=== PATIENT | female | born 1950 | race Caucasian/White ===

== ENCOUNTER 2025-04-19 11:15 | Inpatient (IN) ==
[2025-04-19 11:57] LABS: Hematocrit (blood only) 38.4 % (37.0-47.0); Hemoglobin 13.1 g/dl (12.0-16.0); Immature Granulocytes # (auto) 0.01 K/uL (0.01-0.20); Immature Granulocytes % (auto) 0.3 %; Mean Corpuscular Hemoglobin 32.4 pg (25.0-34.0); Mean Corpuscular Volume 95.0 fL (80.0-100.0); Platelet Count 135 K/uL (130-400); RDW Standard Deviation 45.1 fL (36.4-46.3); Red Blood Count 4.04 M/uL (4.20-5.40); White Blood Count 3.96 K/ul (4.8-10.8)
[2025-04-19 12:12] LABS: Alanine Aminotransferase 22 U/L (7-52); Albumin Globulin Ratio 1.3 (0.9-2); Alkaline Phosphatase 41 U/L (34-104); Anion Gap 5 (3-11); Bilirubin,Total 0.4 mg/dl (0.2-1.0); Blood Urea Nitrogen 10 mg/dl (6-23); Calcium 8.8 mg/dl (8.6-10.3); Carbon Dioxide 30 mmol/L (21-32); Chloride 101 mmol/L (98-107); Globulin 3.0 gm/dl (2.5-4.0); Glucose 165 mg/dl (70-99(Fasting)); Potassium 3.8 mmol/L (3.5-5.1); Sodium 136 mmol/L (136-145); Total Protein 6.8 gm/dl (6.0-8.3)
--- NOTE | 2025-04-19 12:20 | XRay Report ---
SINGLE VIEW CHEST CLINICAL HISTORY: Cough and dyspnea. Covered FINDINGS: An AP, portable, upright chest radiographs are obtained. No prior studies are available for comparison at the time of dictation. The cardiomediastinal silhouette is unremarkable noting atheros clerotic calcification of the thoracic aorta. The lungs and pleural spaces are clear. No pneumothorax is seen. The skeletal structures are osteopenic. The bony thorax is grossly intact. IMPRESSION: No active disease in the chest. ACT 112: Negative or not required by law. Electronically signed by: Des Minaya M.D. 04/19/2025 12:19 PM
[2025-04-19] MEDS: OPTIRAY 320 125ml IV ONE (13:11)
--- NOTE | 2025-04-19 13:29 | CT Scan Report ---
CT ANGIOGRAM OF THE CHEST CLINICAL HISTORY: Dyspnea. Covid. COMPARISON STUDY: No priors TECHNIQUE: Following the IV administration of 63 cc of Optiray 320, CT angiogram of the chest was per formed from the upper abdomen to the thoracic inlet utilizing the pulmonary embolus protocol. Images are reviewed in the axial, sagittal, and coronal planes. 3-D MIPS images are created and assessed. IV contrast was administered without complication. A dose lowering technique was utilized adhering to the principles of ALARA. CT DOSE: 300.2 mGy.cm FINDINGS: Thyroid: Normal in size and heterogeneous in attenuation. Thoracic aorta: There is mild atherosclerotic calcification of the thoracic aorta, which is normal in caliber and demonstrates standard 3-vessel arch anatomy. The thoracic aorta is not well opacified. Pulmonary vasculature: The pulmonary trunk is normal in caliber. There are no filling defects identif ied in main, lobar, or segmental pulmonary branches to suggest pulmonary embolus. Heart: The heart is enlarged and without pericardial effusion. Lungs and pleural spaces: Evaluation of the lung parenchyma is modestly degraded by motion artifact. No airspace consolidation is seen typical for pneumonia. There are trace pleural effusions with depen dent atelectasis. The trachea and central airways are clear. There are scattered calcified granulomas . Mediastinum: There is no mediastinal lymphadenopathy. Vivienne: Clear. Axillae: There is no axillary lymphadenopathy. Upper abdomen: Partially visualized upper abdominal viscera is within normal limits. Skeletal structures: The skeletal structures are osteopenic. No lytic or blastic bony lesions are see n. IMPRESSION: 1. There is no evidence of pulmonary embolus in the main, lobar, or segmental pulmonary arteries. 2. Cardiomegaly and trace pleural effusions. 3. There is no airspace consolidation typical for pneumonia. 4. Additional findings as above ACT 112: Negative or not required by law. Electronically signed by: Des Minaya M.D. 04/19/2025 1:27 PM
--- NOTE | 2025-04-19 13:46 | Emergency Department Note ---
Impression & Plan COVID-19, Fatigue, Dizziness ED Provider Note NAME: KOTA PRATT AGE: 74 SEX: Female INFORMANT: Patient and ED PROVIDER(S): Govind Verde MD CHIEF COMPLAINT: Illness PLAN: Disposition: Admitted Outpatient prescription management: none Referral: None MEDICAL DECISION MAKING: Patient presented because of illness. She was COVID-positive at home. Her history was concerning as she noted feeling lightheaded and dizzy and had hypotension prior to her vomiting. Workup was initiated. CBC and chemistry panels revealed mild leukopenia but no other gross abnormalities. Her ECG showed bradycardia. Cardiac monitoring was done and no dysrhythmia noted. Patient was persistently in the 50s. Patient notes she typically runs in the 60s. Her chest x-ray was unremarkable. Due to the illness the patient underwent CT imaging. No evidence of COVID-pneumonia or pulmonary embolism noted. She did have a slight elevation of BNP. Discussed treatment options with the patient and her . Do have some concerns for possible cardiac etiology of the near syncope and hypotension in light of the lack of other findings. Patient's blood pressure was creeping up as she notes she did not take her morning medications. Patient was given her amlodipine and lisinopril. Patient's carvedilol was held due to her bradycardia. Discussed case with Dr. Soliman of the [facility] hospitalist service. Diagnostics were reviewed. Patient was evaluated in the ER for further management. Care/management discussed with: storage manager, hospitalist Level of care consideration(s): After review of the information above and other included data, I feel the patient requires escalation of care to admission Triage Nursing notes: reviewed and agree them. Vital Signs: reviewed and remarkable for bradycardia, hypertension Additional History obtained from: Chronic Medical/Social Conditions affecting care: FMD Prior/ Outside/ External records reviewed: none Differential Diagnosis: Infection, dehydration, metabolic abnormality, hypo/hyperglycemia, electrolyte disturbance, anemia, hypoxia, cardiac sources, intracerebral event, toxicologic, neurologic, as well as other pathologies. Diagnostics, independently interpreted by me: ECG: Twelve-lead ECG reveals sinus bradycardia 56 beats per minute. No evidence of pericarditis, ischemia, ectopy, or dysrhythmia. Cardiac Monitoring: none Medical decision rules: Cardiac monitoring ordered by me: The patient was placed on continuous cardiac monitoring and observed. It revealed a sinus bradycardia at 54 beats per minute without ectopy or evidence of dysrhythmia. Imaging studies: Chest x-ray. Findings: A chest x-ray was performed and revealed no pneumothorax, effusion, infiltrate, pulmonary edema, free air under the diaphragm, or wide mediastinum. Impression: No acute disease. HPI: 74 year old Female arrives for evaluation of illness. This started 5 days ago and is worsening. Patient was diagnosed with COVID-19. Patient states that he has been improving. She took a home test and it was positive. PCP did prescribe Paxlovid but patient did not fill this. The patient also notes the following associated symptoms, body aches, fever, lightheadedness, dizziness, fatigue, SOB, vomiting, generalized weakness, brain fog and nasal congestion. The patient has found no relieving factors. Current pain is rated as 5/10. Patient states that she has been laid up and very fatigued with this. She felt lightheaded and dizzy today and took her blood pressure. She found that it was in the 90s systolic. Pt denies LOC, visual changes, neck pain, chest pain, abdominal pain, back pain, melena, hematochezia, urinary symptoms, numbness, lymphadenopathy, rash, or other complaints.. PAST MEDICAL HISTORY: See Below, COVID-19 PAST SURGICAL HISTORY: See Below, SOCIAL HISTORY: See Below, HOME MEDICATIONS: See Below ALLERGIES: See Below VITALS: See Below PHYSICAL EXAMINATION: GENERAL: Awake, tired-appearing, in no distress HENT: Normocephalic, atraumatic. Oropharynx unremarkable. EYES: Normal conjunctiva. Sclera non-icteric. NECK: Inspection normal. Non-tender. Supple. No nuchal rigidity. FROM. No masses. RESPIRATORY: Clear to auscultation. No wheezes. No rales. Normal respiratory effort. CARDIAC: Normal rate. Normal rhythm. No murmurs. No rubs. Extremities warm and well perfused. Pulses equal. No JVD. GI: Soft, non-distended. No tenderness to palpation. No rebound or guarding. No masses. RECTAL: Deferred. MUSCULOSKELETAL: Atraumatic. Chest examination reveals no tenderness. The back is symmetrical on inspection without obvious abnormality. There is no CVA tenderness to palpation. No joint edema. LOWER EXTREMITIES: Calves are equal size bilaterally and non-tender. No edema. No discoloration. NEURO: Normal sensorium. No sensory or motor deficits noted. SKIN: No rash or jaundice noted. PROCEDURES: none CRITICAL CARE: none OBSERVATION NOTE: none Past Med/Surg History Problem List Dizziness (Acute) Fatigue (Acute) COVID-19 (Acute) Medical History Fibromuscular dysplasia Social History Smoking Status: Never smoker Second Hand Exposure: No; Do You Dip or Chew Tobacco: No; Tobacco Cessation Education Requested by Patient: No Hx Alcohol Use: Yes Hx Substance Use: No Preferred Language: Bangladeshi Communication Ability: Effective Mold Dresser Required: No Beliefs That Will Affect Care: None Current Living Situation: Spouse Other Information That Helps Us Care for You: No Feels Safe at Home: Yes Safety Concerns: Feels Safe At This Time Assistive Devices: Glasses Assistive Devices Comment: glasses bedside Allergies Allergies Allergy/AdvReac Type Severity Reaction Status Date / Time Unable to Assess Allergy Unverified 04/19/25 14:34 Home Meds Home Medications Medication Instructions Recorded Confirmed amlodipine 2.5 mg tablet 2.5 mg PO QAM 04/19/25 04/19/25 carvedilol 3.125 mg tablet 3.125 mg PO BIDWMEAL 04/19/25 04/19/25 lisinopril 20 mg tablet 20 mg PO QAM 04/19/25 04/19/25 rosuvastatin 10 mg tablet 10 mg PO QAM 04/19/25 04/19/25 sertraline 50 mg tablet 150 mg PO QAM 04/19/25 04/19/25 zolpidem 5 mg tablet 5 mg PO HS PRN Sleep 04/19/25 04/19/25 Results & Data (ED) Vital Signs Vital Signs - 24 hr 04/19/25 11:18 04/19/25 12:01 04/19/25 12:07 Temperature 36.9 C Temperature Source Oral Pulse Rate 58 L 54 L Pulse Rate [Right Finger] 54 L Pulse Rate from SpO2 Sensor Pulse Rhythm [Right Finger] Regular Pulse Strength [Right Finger] Normal Respiratory Rate 20 16 Respiratory Effort / Characteristics Non-Labored Non-Labored Respiratory Depth Normal Normal Respiratory Pattern Regular Blood Pressure 141/82 H Blood Pressure [Right Arm] 150/74 H Blood Pressure Mean 101 Blood Pressure Mean [Right Arm] 99 Blood Pressure Position [Right Arm] Lying Pulse Oximetry 97 97 Oxygen Delivery Method Room Air Room Air Sepsis Recent Fever Within 48 Hours Yes Sepsis New/Unexplained Change in Mental Status Yes Sepsis Action Taken by Nursing No Action Required 04/19/25 14:15 04/19/25 15:00 04/19/25 15:24 Temperature Temperature Source Pulse Rate 57 L Pulse Rate [Right Finger] 59 L Pulse Rate from SpO2 Sensor 57 L Pulse Rhythm [Right Finger] Regular Pulse Strength [Right Finger] Normal Respiratory Rate 16 15 Respiratory Effort / Characteristics Non-Labored Respiratory Depth Normal Respiratory Pattern Regular Blood Pressure 178/89 H Blood Pressure [Right Arm] 182/89 H Blood Pressure Mean 118 Blood Pressure Mean [Right Arm] 120 Blood Pressure Position [Right Arm] Lying Pulse Oximetry 99 100 97 Oxygen Delivery Method Room Air Room Air Room Air Sepsis Recent Fever Within 48 Hours Sepsis New/Unexplained Change in Mental Status Sepsis Action Taken by Nursing 04/19/25 16:02 04/19/25 16:03 Temperature Temperature Source Pulse Rate 58 L 58 L Pulse Rate [Right Finger] Pulse Rate from SpO2 Sensor 57 L Pulse Rhythm [Right Finger] Pulse Strength [Right Finger] Respiratory Rate 21 Respiratory Effort / Characteristics Respiratory Depth Respiratory Pattern Blood Pressure 188/91 H Blood Pressure [Right Arm] Blood Pressure Mean 123 Blood Pressure Mean [Right Arm] Blood Pressure Position [Right Arm] Pulse Oximetry 98 Oxygen Delivery Method Room Air Sepsis Recent Fever Within 48 Hours Sepsis New/Unexplained Change in Mental Status Sepsis Action Taken by Nursing Laboratory Data 04/19/25 11:37 04/19/25 11:37 Lab Results 04/19/25 04/19/25 Range/Units 11:37 16:25 WBC 3.96 L (4.8-10.8) K/ul RBC 4.04 L (4.20-5.40) M/uL Hgb 13.1 (12.0-16.0) g/dl Hct 38.4 (37.0-47.0) % MCV 95.0 (80.0-100.0) fL MCH 32.4 (25.0-34.0) pg MCHC 34.1 (32.0-36.0) g/dL RDW Std Deviation 45.1 (36.4-46.3) fL RDW Coeff of [place] 12.8 (11.5-14.5) % Plt Count 135 (130-400) K/uL MPV 10.6 (9.4-12.4) fL Immature Gran % (Auto) 0.3 % Neut % (Auto) 57.8 % Lymph % (Auto) 31.3 % [place] % (Auto) 9.8 % Eos % (Auto) 0.5 % Baso % (Auto) 0.3 % Neut # (Auto) 2.29 (1.40-6.50) K/uL Lymph # (Auto) 1.24 (1.20-3.40) K/uL [place] # (Auto) 0.39 (0.11-0.59) K/uL Eos # (Auto) 0.02 (0.00-0.50) K/uL Baso # (Auto) 0.01 (0.00-0.20) K/uL Immature Gran # (Auto) 0.01 (0.01-0.20) K/uL Sodium 136 (136-145) mmol/L Potassium 3.8 (3.5-5.1) mmol/L Chloride 101 (98-107) mmol/L Carbon Dioxide 30 (21-32) mmol/L Anion Gap 5 (3-11) BUN 10 (6-23) mg/dl Creatinine 0.66 (0.6-1.2) mg/dl Est Cr Clr Drug Dosing Not Reportable eGFR 92.57 BUN/Creatinine Ratio 15.2 (10-20) Glucose 165 H (70-99(Fasting)) mg/dl Calcium 8.8 (8.6-10.3) mg/dl Total Bilirubin 0.4 (0.2-1.0) mg/dl AST 27 (13-39) U/L ALT 22 (7-52) U/L Alkaline Phosphatase 41 (34-104) U/L Troponin I High Sens 10.5 (0-14) pg/ml B-Natriuretic Peptide 171 H (0-100) pg/ml Total Protein 6.8 (6.0-8.3) gm/dl Albumin 3.8 (3.4-5.0) gm/dl Globulin 3.0 (2.5-4.0) gm/dl Albumin/Globulin Ratio 1.3 (0.9-2) Urine Color Yellow Urine Appearance Clear (Clear) Urine pH 8.5 H (4.5-7.5) Ur Specific [place] 1.021 (1.000-1.030) Urine Protein Negative (Negative) Urine Glucose (UA) Negative (Negative) Urine Ketones Negative (Negative) Urine Blood Trace H (Negative) Urine Nitrite Negative (Negative) Urine Bilirubin Negative (Negative) Urine Urobilinogen Negative (Negative) Ur Leukocyte Esterase Trace H (Negative) Urine WBC (Auto) 0-5 (0-5) /hpf Urine RBC (Auto) 0-2 (0-2) /hpf U Hyaline Cast (Auto) 0-2 (0-2) /lpf U Epithel Cells (Auto) 0-2 (0-2) /hpf Urine Bacteria (Auto) None Seen (None Seen) Urine Comment Administered Medications Hydralazine HCl (Hydralazine Hcl 20 Mg/Ml Vial) 10 mg IV Q6 PRN PRN Reason: Hypertension Stop: 05/19/25 18:09 Last Admin: 04/19/25 18:37 Dose: 10 mg Documented By: Discontinued Medications Amlodipine Besylate (Amlodipine Besylate 5 Mg Tab) 2.5 mg PO NOW ONE Stop: 04/19/25 15:55 Last Admin: 04/19/25 16:03 Dose: 2.5 mg Documented By: carlos eduardo Ioversol (Optiray 320 125ml) 63 ml IV ONCE ONE Stop: 04/19/25 13:11 Last Admin: 04/19/25 13:11 Dose: 63 ml Documented By: NARCISO Lisinopril (Lisinopril 20 Mg Tab) 20 mg PO NOW STA Stop: 04/19/25 15:55 Last Admin: 04/19/25 16:27 Dose: 20 mg Documented By: carlos eduardo Imaging Data Radiologist's Impression: Chest X-Ray 04/19/25 11:24 SINGLE VIEW CHEST CLINICAL HISTORY: Cough and dyspnea. Covered FINDINGS: An AP, portable, upright chest radiographs are obtained. No prior studies are available for comparison at the time of dictation. The cardiomediastinal silhouette is unremarkable noting atherosclerotic calcification of the thoracic aorta. The lungs and pleural spaces are clear. No pneumothorax is seen. The skeletal structures are osteopenic. The bony thorax is grossly intact. IMPRESSION: No active disease in the chest. ACT 112: Negative or not required by law. Electronically signed by: Des Minaya M.D. 04/19/2025 12:19 PM Chest CTA 04/19/25 12:45 CT ANGIOGRAM OF THE CHEST CLINICAL HISTORY: Dyspnea. Covid. COMPARISON STUDY: No priors TECHNIQUE: Following the IV administration of 63 cc of Optiray 320, CT angiogram of the chest was performed from the upper abdomen to the thoracic inlet utilizing the pulmonary embolus protocol. Images are reviewed in the axial, sagittal, and coronal planes. 3-D MIPS images are created and assessed. IV contrast was administered without complication. A dose lowering technique was utilized adhering to the principles of ALARA. CT DOSE: 300.2 mGy.cm FINDINGS: Thyroid: Normal in size and heterogeneous in attenuation. Thoracic aorta: There is mild atherosclerotic calcification of the thoracic aorta, which is normal in caliber and demonstrates standard 3-vessel arch anatomy. The thoracic aorta is not well opacified. Pulmonary vasculature: The pulmonary trunk is normal in caliber. There are no filling defects identified in main, lobar, or segmental pulmonary branches to suggest pulmonary embolus. Heart: The heart is enlarged and without pericardial effusion. Lungs and pleural spaces: Evaluation of the lung parenchyma is modestly degraded by motion artifact. No airspace consolidation is seen typical for pneumonia. There are trace pleural effusions with dependent atelectasis. The trachea and central airways are clear. There are scattered calcified granulomas. Mediastinum: There is no mediastinal lymphadenopathy. Vivienne: Clear. Axillae: There is no axillary lymphadenopathy. Upper abdomen: Partially visualized upper abdominal viscera is within normal limits. Skeletal structures: The skeletal structures are osteopenic. No lytic or blastic bony lesions are seen. IMPRESSION: 1. There is no evidence of pulmonary embolus in the main, lobar, or segmental pulmonary arteries. 2. Cardiomegaly and trace pleural effusions. 3. There is no airspace consolidation typical for pneumonia. 4. Additional findings as above ACT 112: Negative or not required by law. Electronically signed by: Des Minaya M.D. 04/19/2025 1:27 PM Discharge Plan Visit Data Chief Complaint: Illness ED Provider: Govind Verde Discharge Problem: COVID-19, Fatigue, Dizziness Patient Disposition: Admitted As Inpatient Condition: Good Discharge Instructions Interventions: ED Discharge Assessment Last Done: 04/19/25 17:49
[2025-04-19 16:44] LABS: Appearance Urine Clear (Clear); Bacteria Urine Automated None Seen (None Seen); Cast Urine Automated 0-2 /lpf (0-2); Epithelial Cell Urine Auto 0-2 /hpf (0-2); Glucose Urine UA Negative (Negative); RBC Urine Automated 0-2 /hpf (0-2); WBC Urine Automated 0-5 /hpf (0-5)
--- NOTE | 2025-04-19 17:24 | History & Physical Report ---
Date of Service April 19, 2025 Assessment & Plan (1) Dizziness: Plan 74F with PMH fibromuscular dysplasia, HTN who presents with near syncopal episode in setting of COVID infection #Near syncope -Etiology not clear -Possibly due to labile BP+ mild bradycardia in setting of COVID infection -EKG sinus vijay -CTA without PE or PNA -Trop normal -BNP mildly elevated which is new -There is no s/s volume overload or CHF Plan -Stop home coreg given bradycardia -Check TTE given elevated BNp without clear explanation -Continue telemetry #HTN urgency -BP labile, which has been an issue for her in the past -Coreg not ideal given her bradycardia -No s/s end organ damage. doubt BNP elevation was from her labile BP Plan -DC coreg -Increase norvasc from 2.5 to 5mg -Continue lisinopril 20 -Add hydralazine IV prn Greater than 70 minutes were spent discussing with ED, reviewing chart, labs, imaging, talking with patient, placing orders and writing documentation History of Present Illness Chief Complaint: near syncopal episode Primary Care Provider: Briseyda Sharpe MD Ms. Ojeda is a pleasant 74F with PMH fibromusclar dysplasia, HTN who presents with near syncopal episode today. Five days ago, she developed cough, fevers, myalgias. She took a home covid test and was positive. She was ordered paxlovid but has yet to take. She also endorses sinus congestion, fatigue, brain fog. Today, she felt lightheaded and almost lost consciousness. She checked her BP at home and systolic was in the 90s. In the ED, her BP was actually elevated at 188/91. Patient states these BP fluctuations have happened in the past and was attributed to her renal fibromuscular dysplasia. No further episodes of lighthe adedness. She denies CRAMER vision changes LOC CP palp SOB abd pain nvd ED vitals: 188/91 HR mid 50s O2 98 Labs benign other than mildly elevated BNP at 171. No history of CHF CTA chest no acute findings EKG sinus vijay Allergies Allergy/AdvReac Type Severity Reaction Status Date / Time Unable to Assess Allergy Unverified 04/19/25 14:34 Home Medications Medication Instructions Recorded Confirmed Type amlodipine 2.5 mg tablet 2.5 mg PO QAM 04/19/25 04/19/25 History carvedilol 3.125 mg tablet 3.125 mg PO BIDWMEAL 04/19/25 04/19/25 History lisinopril 20 mg tablet 20 mg PO QAM 04/19/25 04/19/25 History rosuvastatin 10 mg tablet 10 mg PO QAM 04/19/25 04/19/25 History sertraline 50 mg tablet 150 mg PO QAM 04/19/25 04/19/25 History zolpidem 5 mg tablet 5 mg PO HS PRN Sleep 04/19/25 04/19/25 History Past Med/Surg History Problem List Dizziness (Acute) Fatigue (Acute) COVID-19 (Acute) Medical History Fibromuscular dysplasia Social History Smoking Status: Never smoker Preferred Language: French Feels Safe at Home: Yes Review of Systems Review of Systems: 14 point ROS neg unless stated in HPI Physical Exam Physical Exam: Vitals and labs reviewed General: Well appearing, NAD HEENT: EOMI, PERRLA Neck: Supple Cardiac: RRR no rubs gallops or murmurs Lungs: CTA no rhonchi wheezing or rales Abd: S NT ND BS positive : Deffered MSK: Full ROM. No obvious deformities Ext: No Edema cyanosis Skin: Warm, Dry Neuro: AOx3 No focal deficits. Psych: Normal Mood Results & Data Results & Data Vital Signs (Past 12 Hours) Vital Signs Temp Pulse Pulse Resp BP BP Pulse Ox 04/19/25 16:03 58 L 21 188/91 H 98 04/19/25 16:02 58 L 04/19/25 15:24 97 04/19/25 15:00 57 L 15 178/89 H 100 04/19/25 14:15 59 L 16 182/89 H 99 04/19/25 12:07 54 L 04/19/25 12:01 54 L 16 150/74 H 97 04/19/25 11:18 36.9 C 58 L 20 141/82 H 97 O2 Del Method 04/19/25 16:03 Room Air 04/19/25 16:02 08/23/25 15:24 Room Air 04/19/25 15:00 Room Air 04/19/25 14:15 Room Air 04/19/25 12:07 04/19/25 12:01 Room Air 04/19/25 11:18 Room Air Laboratory Results Abnormal lab results 04/19/25 04/19/25 Range/Units 11:37 16:25 WBC 3.96 L (4.8-10.8) K/ul RBC 4.04 L (4.20-5.40) M/uL Glucose 165 H (70-99(Fasting)) mg/dl B-Natriuretic Peptide 171 H (0-100) pg/ml Urine pH 8.5 H (4.5-7.5) Urine Blood Trace H (Negative) Ur Leukocyte Esterase Trace H (Negative) Diagnostic Findings Chest X-Ray 04/19/25 11:24 SINGLE VIEW CHEST CLINICAL HISTORY: Cough and dyspnea. Covered FINDINGS: An AP, portable, upright chest radiographs are obtained. No prior studies are available for comparison at the time of dictation. The cardiomediastinal silhouette is unremarkable noting atherosclerotic calcification of the thoracic aorta. The lungs and pleural spaces are clear. No pneumothorax is seen. The skeletal structures are osteopenic. The bony thorax is grossly intact. IMPRESSION: No active disease in the chest. ACT 112: Negative or not required by law. Electronically signed by: Des Minaya M.D. 04/19/2025 12:19 PM Chest CTA 04/19/25 12:45 CT ANGIOGRAM OF THE CHEST CLINICAL HISTORY: Dyspnea. Covid. COMPARISON STUDY: No priors TECHNIQUE: Following the IV administration of 63 cc of Optiray 320, CT angiogram of the chest was performed from the upper abdomen to the thoracic inlet utilizing the pulmonary embolus protocol. Images are reviewed in the axial, sagittal, and coronal planes. 3-D MIPS images are created and assessed. IV contrast was administered without complication. A dose lowering technique was utilized adhering to the principles of ALARA. CT DOSE: 300.2 mGy.cm FINDINGS: Thyroid: Normal in size and heterogeneous in attenuation. Thoracic aorta: There is mild atherosclerotic calcification of the thoracic aorta, which is normal in caliber and demonstrates standard 3-vessel arch anatomy. The thoracic aorta is not well opacified. Pulmonary vasculature: The pulmonary trunk is normal in caliber. There are no filling defects identified in main, lobar, or segmental pulmonary branches to suggest pulmonary embolus. Heart: The heart is enlarged and without pericardial effusion. Lungs and pleural spaces: Evaluation of the lung parenchyma is modestly degraded by motion artifact. No airspace consolidation is seen typical for pneumonia. There are trace pleural effusions with dependent atelectasis. The trachea and central airways are clear. There are scattered calcified granulomas. Mediastinum: There is no mediastinal lymphadenopathy. Vivienne: Clear. Axillae: There is no axillary lymphadenopathy. Upper abdomen: Partially visualized upper abdominal viscera is within normal limits. Skeletal structures: The skeletal structures are osteopenic. No lytic or blastic bony lesions are seen. IMPRESSION: 1. There is no evidence of pulmonary embolus in the main, lobar, or segmental pulmonary arteries. 2. Cardiomegaly and trace pleural effusions. 3. There is no airspace consolidation typical for pneumonia. 4. Additional findings as above ACT 112: Negative or not required by law. Electronically signed by: Des Minaya M.D. 04/19/2025 1:27 PM Code Status & VTE Plan Code Status full VTE Prophylaxis Plan VTE Prophylaxis will be ordered: Yes
[2025-04-19] MEDS ORDERED: ONDANSETRON INJ 2 MG/ML 2 ML VIAL IV PRN (18:10)
[2025-04-19] MEDS ORDERED: Patient's HEIGHT &/or WEIGHT Needed SCH (18:30)
[2025-04-19] MEDS: ACETAMINOPHEN 325 MG TAB PO PRN (19:53)
[2025-04-19] MEDS: HEPARIN SOD 5,000 UNIT/0.5 ML VIAL SQ SCH (21:20)
[2025-04-19] MEDS: ZOLPIDEM TARTRATE 5 MG TAB PO PRN (21:20)
[2025-04-19] MEDS: guaiFENesin 600 MG TABCR PO SCH (21:31)
[2025-04-19] MEDS: ACETAMINOPHEN 500 MG TAB PO PRN (23:33)
[2025-04-20 06:34] LABS: Anion Gap 6.0 (3-11); Blood Urea Nitrogen 11.0 mg/dl (6-23); Calcium 8.8 mg/dl (8.6-10.3); Carbon Dioxide 31.0 mmol/L (21-32); Chloride 102.0 mmol/L (98-107); Creatinine Clr Calc Pharmacy 70.2 ml/min; Glucose 83.0 mg/dl (70-99(Fasting)); Potassium 3.4 mmol/L (3.5-5.1); Sodium 139.0 mmol/L (136-145)
[2025-04-20 06:38] LABS: Hematocrit (blood only) 38.8 % (37.0-47.0); Hemoglobin 13.3 g/dl (12.0-16.0); Mean Corpuscular Hemoglobin 32.0 pg (25.0-34.0); Mean Corpuscular Volume 93.5 fL (80.0-100.0); Platelet Count 138 K/uL (130-400); RDW Standard Deviation 43.8 fL (36.4-46.3); Red Blood Count 4.15 M/uL (4.20-5.40); White Blood Count 3.18 K/ul (4.8-10.8)
[2025-04-20 07:00] LABS: Immature Granulocytes # (auto) 0.01 K/uL (0.01-0.20); Immature Granulocytes % (auto) 0.3 %
[2025-04-20] MEDS: ROSUVASTATIN CALCIUM 10 MG TAB PO SCH (08:17)
[2025-04-20] MEDS: SERTRALINE HCL 50 MG TABLET PO SCH (08:17)
--- NOTE | 2025-04-20 10:01 | CT Scan Report ---
CT SCAN OF THE BRAIN WITHOUT IV CONTRAST CLINICAL HISTORY: Near syncope COMPARISON STUDY: No priors TECHNIQUE: Unenhanced axial CT scan of the brain is performed from the vertex to the skull base. Imag es are reviewed in the axial, sagittal, coronal planes. A dose lowering technique was utilized adheri ng to the principles of ALARA. CT DOSE: 547.75 mGy.cm FINDINGS: Brain parenchyma: There is age-related involutional change noting minimal subcortical and periventric ular microangiopathic disease. There is no hemorrhage, mass effect, or evidence of acute territorial ischemia by CT criteria. Blanco-white matter differentiation is preserved. No extra-axial fluid collect ion is seen. Ventricles, sulci, cisterns: Prominent secondary to involutional change. Intracranial vasculature: There is atherosclerotic calcification of the cavernous carotid and vertebr al arteries. Calvarium: Unremarkable. Sinuses and mastoids: Delete there is moderate mucosal thickening within the ethmoid sinuses. Mild mu cosal thickening is noted in the frontal and sphenoid sinuses. There is trace fluid in the left maxil carlos antrum. The mastoid air cells are well pneumatized. Orbits: The bony orbits are grossly intact. IMPRESSION: There is no hemorrhage, mass effect, or evidence of acute territorial ischemia by CT crit erliang. ACT 112: Negative or not required by law. Electronically signed by: Des Minaya M.D. 04/20/2025 9:58 AM
--- NOTE | 2025-04-20 12:49 | Electrocardiogram Report ---
Test Reason : Blood Pressure : */* mmHG Vent. Rate : 56 BPM Atrial Rate : 56 BPM P-R Int : 154 ms QRS Dur : 80 ms QT Int : 470 ms P-R-T Axes : 87 61 68 degrees QTcB Int : 453 ms Sinus bradycardia Otherwise normal ECG No previous ECGs available Confirmed by Lamberto Humphries ([id number]) on 04/20/2025 12:49:02 PM Referred By: REFERRED SELF Confirmed By: Lamberto Humphries
[2025-04-20] MEDS: SODIUM CHLORIDE 0.9% 1,000 ML IV SCH (13:35)
[2025-04-20] MEDS: AMOXICILLIN/CLAVULANATE 875 MG TAB PO ONE (13:35)
--- NOTE | 2025-04-20 15:47 | Hospitalist Progress Note ---
Date of Service April 20, 2025 Assessment & Plan (1) Dizziness: Plan 74F with PMH fibromuscular dysplasia, HTN who presents with near syncopal episode in setting of COVID infection Dizziness Orthostatic hypotension in the setting of poor oral intake, COVID infection, renal fibromuscular dysplasia Sinus Bradycardia -- positive orthostatic vital signs start IV NSS supportive care for COVID infection- on room air, chest x-ray clear; rem desivir contraindicated in light of status bradycardia; Augmentin for possible superimposed bacterial sinus infection heart rate improving to 70s-80s, hold carvedilol, continue lisinopril, an d amlodipine; nephrology service consulted -- CT head: No acute process CT angio chest: No acute PE #HTN --BP labile, which has been an issue for her in the past -- management of orthostatic hypotension per above DVT prophylaxis Heparin SC twice daily Disposition Pending plan of care discussed with patient and her in detail and at length all questions answered they are understanding, agreeable, comfortable with the plan of care Admission and Anticipated Discharge Date Admission Date: April 20, 2025 Subjective seen resting in bed, comfortable states she feels improved compared to yesterday no dizziness, palpitations, when standing today no shortness of breath, cough has nasal/sinus congestion, drainage no chest pain appetite is fair Review of Systems Review of Systems: all noted and negative except for above Physical Exam Physical Exam: General- oriented x 3, not in distress, speaks in sentences with no effort or accessory muscle use Eyes- anicteric Neck- no JVD Lungs- clear breath sounds bilaterally, no crackles or wheezing Heart- normal rate, regular rhythm; no murmurs Abdomen- normal bowel sounds, nondistended, soft, no tenderness Extremities- no pretibial edema, no calf tenderness Neuro- alert, oriented x 3; no gross focal neurologic deficits Skin- warm & dry Results & Data Results & Data Vital Signs (Past 12 Hours) Vital Signs Temp Pulse Pulse Resp BP Pulse Ox O2 Del Method 04/20/25 14:54 36.8 C 64 18 135/78 99 Room Air 04/20/25 11:46 36.7 C 59 L 18 155/66 H 98 Room Air 04/20/25 08:44 56 L 04/20/25 07:44 36.7 C 60 18 155/66 H 98 Room Air 04/20/25 06:50 Room Air all noted and reviewed including below
--- NOTE | 2025-04-20 17:22 | Nephrology Consultation ---
Date of Consultation April 20, 2025 Assessment & Plan (1) Orthostatic hypotension: had near syncope at home with Low BP at home but then Had high BP here. this obviously makes it hard. Even this morning had Big drop in BP on standing from 158 down to 115 so then given some NS. continue same for now (2) Labile hypertension: Today BP so far is much better than yesterday. for now continue Amlo 5 , Lisinopril 20. BB held because of Bradycardia (3) Fibromuscular dysplasia: h/o this and follows with [facility] in [place]. Per patient she was told because of FMD she has Labile HTN Plan Discussed in detail with primary team History of Present Illness Reason for Consultation: labile Hypotension/ Syncope . Fibromuscular Dysplasia Attending Physician: Toño Calvert MD History of Present Illness 74/F with h/o fibromuscular dysplasia, Labile and Complicated HTN who presented with near syncopal episode yesterday.. Few days ago, she developed cough, fevers, myalgias. She took a home covid test and was positive. She was ordered paxlovid but she has yet to take. She also had some fever,sinus congestion, fatigue very poor appetite and confusion. Yesterday she felt lightheaded and almost had syncope. also had one episode of vomiting. She checked her BP at home and systolic was in the 90s. But In the ED, she had elevated BP at 188/91. Patient states these BP fluctuations have happened in the past and was attributed to her renal fibromuscular dysplasia. No further episodes of lightheadedness since admission. At home coreg 3.125 bid, Lisinopril 20 and Amlodipine 2.5. Now BB is stopped because of Bradycardia. amlo dose raised to 5. At least today BP seems more reasonable--last BP 135/78. However in Morning she did have big drop in BP on standing---158 sys down to 115 sys Standing Allergies Allergy/AdvReac Type Severity Reaction Status Date / Time Unable to Assess Allergy Unverified 04/19/25 14:34 Home Medications Medication Instructions Recorded Confirmed Type amlodipine 2.5 mg tablet 2.5 mg PO QAM 04/19/25 04/19/25 History carvedilol 3.125 mg tablet 3.125 mg PO BIDWMEAL 04/19/25 04/19/25 History lisinopril 20 mg tablet 20 mg PO QAM 04/19/25 04/19/25 History rosuvastatin 10 mg tablet 10 mg PO QAM 04/19/25 04/19/25 History sertraline 50 mg tablet 150 mg PO QAM 04/19/25 04/19/25 History zolpidem 5 mg tablet 5 mg PO HS PRN Sleep 04/19/25 04/19/25 History Patient History Medical History Fibromuscular dysplasia Social History Smoking Status: Never smoker Second Hand Exposure: No; Do You Dip or Chew Tobacco: No; Tobacco Cessation Education Requested by Patient: No Hx Alcohol Use: Yes Hx Substance Use: No Preferred Language: Tongan Communication Ability: Effective Head Cook Required: No Beliefs That Will Affect Care: None Current Living Situation: Spouse Other Information That Helps Us Care for You: No Feels Safe at Home: Yes Safety Concerns: Feels Safe At This Time Assistive Devices: Glasses Assistive Devices Comment: glasses bedside Results & Data Vital Signs (Past 12 Hours) Vital Signs Temp Pulse Pulse Resp BP Pulse Ox O2 Del Method 04/20/25 16:16 63 04/20/25 14:54 36.8 C 64 18 135/78 99 Room Air 04/20/25 11:46 36.7 C 59 L 18 155/66 H 98 Room Air 04/20/25 08:44 56 L 04/20/25 07:44 36.7 C 60 18 155/66 H 98 Room Air 04/20/25 06:50 Room Air Laboratory Results CBC, renal panel Diagnostic Findings CXR, CT angio chest--unremarkable. CT head normal.
[2025-04-21 07:08] LABS: Hematocrit (blood only) 37.2 % (37.0-47.0); Hemoglobin 12.4 g/dl (12.0-16.0); Mean Corpuscular Hemoglobin 31.2 pg (25.0-34.0); Mean Corpuscular Volume 93.7 fL (80.0-100.0); Platelet Count 128 K/uL (130-400); RDW Standard Deviation 44.4 fL (36.4-46.3); Red Blood Count 3.97 M/uL (4.20-5.40); White Blood Count 2.50 K/ul (4.8-10.8)
[2025-04-21 07:09] LABS: Alanine Aminotransferase 15.0 U/L (7-52); Albumin Globulin Ratio 1.3 (0.9-2); Alkaline Phosphatase 39.0 U/L (34-104); Anion Gap 5.0 (3-11); Bilirubin,Total 0.3 mg/dl (0.2-1.0); Blood Urea Nitrogen 11.0 mg/dl (6-23); Calcium 8.4 mg/dl (8.6-10.3); Carbon Dioxide 29.0 mmol/L (21-32); Chloride 107.0 mmol/L (98-107); Creatinine Clr Calc Pharmacy 65.8 ml/min; Globulin 2.6 gm/dl (2.5-4.0); Glucose 91.0 mg/dl (70-99(Fasting)); Potassium 3.6 mmol/L (3.5-5.1); Sodium 141.0 mmol/L (136-145); Total Protein 6.1 gm/dl (6.0-8.3)
[2025-04-21 08:22] LABS: Immature Granulocytes # (auto) 0.00 K/uL (0.01-0.20); Immature Granulocytes % (auto) 0.0 %
--- NOTE | 2025-04-21 09:15 | Nephrology Progress Note ---
Date of Service April 21, 2025 Assessment & Plan (1) Orthostatic hypotension: Plan: had near syncope at home with Low BP at home (SBP 90s) but then Had high BP here. this obviously makes it hard. Goal is to have blood pressures with acceptable drop from sitting to standing, i.e. avoiding such a drop that she has symptoms routinely if possible On April 20, 900, sitting blood pressure 128/76, standing blood pressure 115/73 On April 20 193 sitting blood pressure 163/83, standing 133/79 on April 21 1015, sitting blood pressure 152/85, standing 143/83. >continue bid orthostatics >> await bp this evening Care coordinated w/ Dr Calvert by phone re neutropenia, BP goals, orthostatics/next steps; we are in agreement (2) Labile hypertension: Plan: Today BP so far is much better than yesterday and high this AM, high this PM. causes include NS, situational/anxiety for high BP plus HTN >> counselled pt on importance of trends in BP, on not focussing on single reading or single day of readings K 3.6 on ACEI > monitor for now; creat 0.6 >stopped IVF at 0915 >for now continue Amlo 5 , Lisinopril 20. BB held because of Bradycardia >cont to monitor for sx >reviewed routine BP targets w/ her SMBP practices > she's interested in following smbp post d/c w/ our team (3) Fibromuscular dysplasia: Plan: h/o this and follows with [facility] in [place]. Per patient she was told because of FMD she has Labile HTN Admission and Anticipated Discharge Date Admission Date: April 20, 2025 Subjective Remains on normal saline at 75 mm hourly. Scheduled ordered for twice daily vital signs orthostatic. no pain, no confusion, no sob, no focal numbness/weakness; marked anxiety and requesting med for it. amublating in room w/o sx. new neutropenia (WBC 2.5, PMN 0.69) and thrombocytopenia today > smear pending but likeliest is virus Review of Systems 2 Review of Systems: All systems reviewed & are unremarkable except as noted in Subjective Physical Exam 2 Constitutional: well developed and well nourished Eyes: EOM intact bilaterally ENMT: Mouth: + dry oral mucous membranes Respiratory: normal respiratory effort Auscultation: + diminished lung sounds Cardiovascular: RRR, no murmur, no edema Gastrointestinal (Abdomen): Inspection/Auscultation: abdomen normal to inspection (no abdominal bruit) and normal bowel sounds Percussion/Palpation: abdomen soft; abdomen nontender Musculoskeletal: Extremities: strength 5/5 throughout Skin: no rashes, warm and dry Neurologic: church, fluent speech, no tremor Results & Data Vital Signs (Past 12 Hours) Vital Signs Temp Pulse Pulse Resp BP BP Pulse Ox 04/21/25 07:30 36.8 C 69 18 179/93 H 98 04/21/25 03:00 36.8 C 67 16 169/81 H 98 04/20/25 23:33 37.1 C 68 16 173/73 H 99 04/20/25 22:03 92 H O2 Del Method 04/21/25 07:30 Room Air 04/21/25 03:00 Room Air 04/20/25 23:33 Room Air 04/20/25 22:03 Laboratory Results 04/21/25 05:51 04/21/25 05:51
[2025-04-21] MEDS: AMOXICILLIN/CLAVULANATE 875 MG TAB PO SCH (12:58)
[2025-04-21] MEDS ORDERED: Nursing to Pharmacy Communication SCH (14:00)
--- NOTE | 2025-04-21 16:38 | Hospitalist Progress Note ---
Date of Service April 21, 2025 Assessment & Plan (1) Dizziness: Plan 74F with PMH fibromuscular dysplasia, HTN who presents with near syncopal episode in setting of COVID infection Dizziness Orthostatic hypotension in the setting of poor oral intake, COVID infection, renal fibromuscular dysplasia Sinus Bradycardia -- positive orthostatic vital signs: given IV fluids, improving nephrology service consulted, fluids discontinued, continue amlodipine and lisinopril supportive care for COVID infection- on room air, chest x-ray clear; remdesivir contraindicated in light of status bradycardia; Augmentin for possible superimposed bacterial sinus infection heart rate improving to 60s, hold carvedilol, continue lisinopril, and amlodipine -- CT head: No acute process CT angio chest: No acute PE echocardiogram: Normal ejection fraction, mild mitral regurgitation #HTN --BP labile, which has been an issue for her in the past -- management of orthostatic hypotension per above # neutropenia,thrombocytopenia - new finding today - ANC 600s Likely secondary to bone marrow suppression from COVID infection Peripheral smear ordered Continue to monitor trend closely DVT prophylaxis Heparin SC twice daily, monitor thrombocytopenia Disposition anticipate d/c home when medically stable Admission and Anticipated Discharge Date Admission Date: April 20, 2025 Subjective seen resting in bed, sitting up, comfortable, not in distress States she feels okay overall today No dizziness or lightheadedness when standing and ambulating No shortness of breath, cough, still with some nasal drainage No fevers or chills No other new symptoms Review of Systems Review of Systems: all noted and negative except for above Physical Exam Physical Exam: General- oriented x 3, not in distress, speaks in sentences with no effort or accessory muscle use Eyes- anicteric Neck- no JVD Lungs- clear breath sounds bilaterally Heart- normal rate, regular rhythm; no murmurs Abdomen- normal bowel sounds, nondistended, soft, nontender Extremities- no pretibial edema, no calf tenderness Neuro- alert, oriented x 3; no gross focal neurologic deficits Skin- warm & dry Results & Data Results & Data Vital Signs (Past 12 Hours) Vital Signs Temp Pulse Pulse Resp BP Pulse Ox O2 Del Method 04/21/25 14:48 65 04/21/25 14:47 36.9 C 69 18 158/81 H 98 Room Air 04/21/25 11:37 37.1 C 67 20 170/82 H 97 Room Air 04/21/25 09:19 164/85 H 04/21/25 07:30 36.8 C 69 18 179/93 H 98 Room Air all noted and reviewed including below
[2025-04-22 07:30] VITALS: RESP 18
--- NOTE | 2025-04-22 09:59 | Nephrology Progress Note ---
Date of Service April 22, 2025 Assessment & Plan (1) Orthostatic hypotension: Plan: had near syncope at home with Low BP at home (SBP 90s) but then Had high BP here. this obviously makes it hard. Goal is to have blood pressures with acceptable drop from sitting to standing, i.e. avoiding such a drop that she has symptoms routinely if possible On April 20, 900, sitting blood pressure 128/76, standing blood pressure 115/73 On April 20 1930 sitting blood pressure 163/83, standing 133/79 on April 215, sitting blood pressure 152/85, standing 143/83. on Apr 21 1930, sitting 147/82, stand 132/76 >continue bid orthostatics >> past med tolerances intolerances for BP > states she needs to avoid sulfa drugs and had rash in the past with hydrochlorothiazide NEPH D/C RECS DX: Fibromuscular dysplasia Labile hypertension Orthostatic hypotension Situational hypertension RX: - Increase amlodipine to 5 mg twice daily Increase lisinopril to 20 mg twice daily OTHER CARE: - Continue self measure blood pressure at home - I will enroll the patient in the outpatient remote blood pressure monitoring program; they should contact her within 3 days of discharge - Less than 2 g daily sodium diet Activity as tolerated F/u appt - With me in [facility] nephro clinic within 2 weeks hospital discharge appointment; neph nurse to order FASTING yisel / renin ratio, basic metabolic panel, urinalysis with microscopy, ACR to be done prior to appointment; patient to bring her home blood pressure cuffs along to visit so that we can evaluate their accuracy at that visit Care coordinated w/ Dr Calvert by ttext re neutropenia, BP goals, med changes, discharge recs; we are in agreement (2) Labile hypertension: Plan: Today BP so far is much better than yesterday and high this AM, high this PM. causes include NS, situational/anxiety for high BP plus HTN >> counselled pt on importance of trends in BP, on not focussing on single reading or single day of readings K 3.6 04/21 on ACEI > monitor for now; creat 0.6 >stopped IVF at 0915 on 04/21 and not much change >>consider low dose diuretic or/and MRA after ARR >increase to bid both Amlo 5 , Lisinopril 20 for max dose of each BB held because of Bradycardia >cont to monitor for sx (3) Fibromuscular dysplasia: Plan: h/o this and follows with [facility] in [place]. Per patient she was told because of FMD she has Labile HTN Admission and Anticipated Discharge Date Admission Date: April 20, 2025 Subjective No acute interval events clinically. Tells me she felt more calm after our discussion yesterday. Blood pressures remain elevated at 152 170 systolic range with diastolics 80s generally. No chest pain no nausea vomiting no confusion no vision changes or headache. Feels her sinus infection is healing appropriately. No edema no belly pain. Eating and drinking and doing ADLs without issue. Adult son is bedside. Review of Systems Review of Systems: All systems reviewed & are unremarkable except as noted in Subjective Physical Exam Constitutional: well developed and well nourished Eyes: EOM intact bilaterally ENMT: Mouth: + dry oral mucous membranes Respiratory: normal respiratory effort Auscultation: + diminished lung sounds Cardiovascular: RRR, no murmur, no edema Gastrointestinal (Abdomen): Inspection/Auscultation: abdomen normal to inspection (no abdominal bruit) and normal bowel sounds Percussion/Palpation: abdomen soft; abdomen nontender Musculoskeletal: Extremities: strength 5/5 throughout Skin: no rashes, warm and dry Results & Data Vital Signs (Past 12 Hours) Vital Signs Temp Pulse Pulse Resp BP Pulse Ox O2 Del Method 04/22/25 07:29 36.9 C 66 18 176/90 H 98 Room Air 04/22/25 07:13 62 04/22/25 03:30 36.9 C 75 16 150/70 H 97 Room Air 04/21/25 22:41 37.1 C 68 16 160/78 H 99 Room Air Laboratory Results none new; CBC drawn during our interview; anaplasmosis screen is negative as is Lyme screen
[2025-04-22 11:24] VITALS: BP 150/80; PULSE 65; TEMP 97.9; O2SAT 99
[2025-04-22 11:56] LABS: Hematocrit (blood only) 40.0 % (37.0-47.0); Hemoglobin 13.6 g/dl (12.0-16.0); Mean Corpuscular Hemoglobin 32.0 pg (25.0-34.0); Mean Corpuscular Volume 94.1 fL (80.0-100.0); Platelet Count 134 K/uL (130-400); RDW Standard Deviation 44.3 fL (36.4-46.3); Red Blood Count 4.25 M/uL (4.20-5.40); White Blood Count 2.60 K/ul (4.8-10.8)
[2025-04-22 12:46] LABS: ALC (manual) 1.40 K/uL (1.2-3.4); ANC (manual) 0.99 K/uL (1.4-6.5); Other Cell Type % 3 %
--- NOTE | 2025-04-22 20:20 | Discharge Summary ---
Discharge Summary Date of Service April 22, 2025 Principal Dx & Hospital Course #1 = Principal Diagnosis (1) Dizziness: Plan 74F with PMH fibromuscular dysplasia, HTN who presents with near syncopal episode in setting of COVID infection Dizziness Orthostatic hypotension in the setting of poor oral intake, COVID infection, renal fibromuscular dysplasia Sinus Bradycardia -- positive orthostatic vital signs: given IV fluids, improved--> BP elevated Nephrology service consulted, fluids discontinued, increased amlodipine to 5mg BID and lisinopril to 20mg BID, to be enrolled at outpatient BP monitoring program and Nephro follow up as outpatient supportive care given for COVID infection- on room air, chest x-ray clear; remdesivir contraindicated in light of status bradycardia; Augmentin for possible superimposed bacterial sinus infection started heart rate improving to 60s-70s, Carvedilol discontinued -- CT head: No acute process CT angio chest: No acute PE echocardiogram: LV systolic function normal, ejection fraction 60-65%, mild mitral regurgitation, no pericardial effusion #HTN --BP labile, which has been an issue for her in the past -- management of orthostatic hypotension and elevated BP per above # Neutropenia,thrombocytopenia - likely from COVID infection - trend improved while admitted - ANC 1.2--> 0.6 --> 0.9 Plt 128 --> 134 - Peripheral smear for review:#1. Normochromic/normocytic red blood cells, rare hyposegmented PMN leukocytes with maintenance of granularity, unremarkable PMN leukocytes, unremarkable lymphocytes, unremarkable monocytes and unremarkable platelets are all seen.#2. Blasts, schistocytes and spherocytes are not seen.#3. The presence of neutropenia and thrombocytopenia on this patient's current CBC is noted along with the clinical history of a near syncopal episode and COVID-19 infection.#4. A reasonable approach to this case is to repeat the patient's CBC with peripheral smear for review after resolution of the viral infection and document return to normal indices and a normal peripheral smear for review.#5. Please see above discussion. - Tick borne panel ordered: pending, pls follow up - repeat CBC as outpatient # Anxiety - patient requested for Diazepam 5mg BID PRN has taken this a few years ago with no problems advised not to take with Ambien, no driving etc. patient verbalized understanding and agreement # Atherosclerosis, Thoracic Aorta, Cavernous Carotid and Vertebral Arteries seen on CT head and CT chest: Thoracic aorta: There is mild atherosclerotic calcification of the thoracic aorta, which is normal in caliber and demonstrates standard 3-vessel arch anatomy. The thoracic aorta is not well opacified. Intracranial vasculature: There is atherosclerotic calcification of the cavernous carotid and vertebral arteries. Further work up, management, and ff up as outpatient Disposition d/c home ff up with PCP this week Notes For Next Care Provider Medication Changes From Visit per medical reconciliation Admission HPI Per Admitting Provider Ms. Ojeda is a pleasant 74F with PMH fibromusclar dysplasia, HTN who presents with near syncopal episode today. Five days ago, she developed cough, fevers, myalgias. She took a home covid test and was positive. She was ordered paxlovid but has yet to take. She also endorses sinus congestion, fatigue, brain fog. Today, she felt lightheaded and almost lost consciousness. She checked her BP at home and systolic was in the 90s. In the ED, her BP was actually elevated at 188/91. Patient states these BP fluctuations have happened in the past and was attributed to her renal fibromuscular dysplasia. No further episodes of lightheadedness. She denies CRAMER vision changes LOC CP palp SOB abd pain nvd ED vitals: 188/91 HR mid 50s O2 98 Labs benign other than mildly elevated BNP at 171. No history of CHF CTA chest no acute findings EKG sinus vijay Admission Exam Per Admitting Provider Vitals and labs reviewed General: Well appearing, NAD HEENT: EOMI, PERRLA Neck: Supple Cardiac: RRR no rubs gallops or murmurs Lungs: CTA no rhonchi wheezing or rales Abd: S NT ND BS positive : Deffered MSK: Full ROM. No obvious deformities Ext: No Edema cyanosis Skin: Warm, Dry Neuro: AOx3 No focal deficits. Psych: Normal Mood Discharge Exam General- oriented x 3, not in distress, speaks in sentences with no effort or accessory muscle use Eyes- anicteric Neck- no JVD Lungs- clear breath sounds bilaterally, no rales/wheezes Heart- normal rate, regular rhythm; no murmurs Abdomen- normal bowel sounds, nondistended, soft, nontender Extremities- no pretibial edema, no calf tenderness Neuro- alert, oriented x 3; no gross focal neurologic deficits Skin- warm & dry Updated Medication List Medication Instructions Recorded Confirmed Type rosuvastatin 10 mg tablet 10 mg PO QAM 04/19/25 04/19/25 History sertraline 50 mg tablet 150 mg PO QAM 04/19/25 04/19/25 History zolpidem 5 mg tablet 5 mg PO HS PRN Sleep 04/19/25 04/19/25 History amlodipine 5 mg tablet 5 mg PO BID 30 days #60 tabs 04/22/25 Rx amoxicillin 875 mg-potassium 1 tab PO BIDM #11 tabs 04/22/25 Rx clavulanate 125 mg tablet diazepam 5 mg tablet 5 mg PO BID PRN anxiety #14 tabs 04/22/25 Rx lisinopril 20 mg tablet 20 mg PO BID 30 days #60 tabs 04/22/25 Rx Hospital Stay Data Consultations 04/19/25 16:32 ED Decision to Admit Stat 04/20/25 13:12 Consult Nephrology Routine Diagnostic Imagining Performed Laboratory Results WBC 2.60 K/ul (4.8-10.8) L 04/22/25 11:28 RBC 4.25 M/uL (4.20-5.40) 04/22/25 11:28 Hgb 13.6 g/dl (12.0-16.0) 04/22/25 11:28 Hct 40.0 % (37.0-47.0) 04/22/25 11:28 MCV 94.1 fL (80.0-100.0) 04/22/25 11:28 MCH 32.0 pg (25.0-34.0) 04/22/25 11:28 MCHC 34.0 g/dL (32.0-36.0) 04/22/25 11:28 RDW Std Deviation 44.3 fL (36.4-46.3) 04/22/25 11:28 RDW Coeff of Otis 12.9 % (11.5-14.5) 04/22/25 11:28 Plt Count 134 K/uL (130-400) 04/22/25 11:28 MPV 10.0 fL (9.4-12.4) 04/22/25 11:28 Immature Gran % (Auto) 0.0 % 04/21/25 05:51 Immature Gran % (Auto) Cancelled 04/21/25 05:51 Neut % (Auto) 27.6 % 04/21/25 05:51 Neut % (Auto) Cancelled 04/21/25 05:51 Lymph % (Auto) 59.2 % 04/21/25 05:51 Lymph % (Auto) Cancelled 04/21/25 05:51 Piatt % (Auto) 12.0 % 04/21/25 05:51 Piatt % (Auto) Cancelled 04/21/25 05:51 Eos % (Auto) 0.8 % 04/21/25 05:51 Eos % (Auto) Cancelled 04/21/25 05:51 Baso % (Auto) 0.4 % 04/21/25 05:51 Baso % (Auto) Cancelled 04/21/25 05:51 Neut # (Auto) 0.69 K/uL (1.40-6.50) L* 04/21/25 05:51 Neut # (Auto) Cancelled 04/21/25 05:51 Lymph # (Auto) 1.48 K/uL (1.20-3.40) 04/21/25 05:51 Lymph # (Auto) Cancelled 04/21/25 05:51 Piatt # (Auto) 0.30 K/uL (0.11-0.59) 04/21/25 05:51 Piatt # (Auto) Cancelled 04/21/25 05:51 Eos # (Auto) 0.02 K/uL (0.00-0.50) 04/21/25 05:51 Eos # (Auto) Cancelled 04/21/25 05:51 Baso # (Auto) 0.01 K/uL (0.00-0.20) 04/21/25 05:51 Baso # (Auto) Cancelled 04/21/25 05:51 Immature Gran # (Auto) 0.00 K/uL (0.01-0.20) L 04/21/25 05:51 Immature Gran # (Auto) Cancelled 04/21/25 05:51 Absolute Nucleated RBC Cancelled 04/21/25 05:51 Nucleated RBC % (auto) Cancelled 04/21/25 05:51 Neutrophils % (Manual) 38 % 04/22/25 11:28 Band Neutrophils % Cancelled 04/21/25 05:51 Lymphocytes % (Manual) 54 % 04/22/25 11:28 Prolymphocyte % Cancelled 04/21/25 05:51 Reactive Lymphs % (Man) Cancelled 04/21/25 05:51 Monocytes % (Manual) 5 % 04/22/25 11:28 Eosinophils % (Manual) Cancelled 04/21/25 05:51 Basophils % (Manual) Cancelled 04/21/25 05:51 Metamyelocytes % (Man) Cancelled 04/21/25 05:51 Myelocytes % (Man) Cancelled 04/21/25 05:51 Promyelocytes % (Man) Cancelled 04/21/25 05:51 Blast Cells % (Manual) Cancelled 04/21/25 05:51 Plasma Cell % (Manual) Cancelled 04/21/25 05:51 Other Cells % 3 % 04/22/25 11:28 Nucleated RBC % Cancelled 04/21/25 05:51 Neutrophils # (Manual) 0.99 K/uL (1.40-6.50) L 04/22/25 11:28 Band Neutrophils # Cancelled 04/21/25 05:51 Total Absolute Neuts 0.99 K/uL (1.4-6.5) L* 04/22/25 11:28 Lymphocytes # (Manual) 1.40 K/uL (1.2-3.4) 04/22/25 11:28 Prolymphocyte # Cancelled 04/21/25 05:51 Reactive Lymphs # Cancelled 04/21/25 05:51 Total Abs Lymphocytes 1.40 K/uL (1.2-3.4) 04/22/25 11:28 Monocytes # (Manual) 0.13 K/uL (0.11-0.59) 04/22/25 11:28 Eosinophils # (Manual) Cancelled 04/21/25 05:51 Basophils # (Manual) Cancelled 04/21/25 05:51 Metamyelocytes # (Man) Cancelled 04/21/25 05:51 Myelocytes # (Manual) Cancelled 04/21/25 05:51 Promyelocytes # (Man) Cancelled 04/21/25 05:51 Blast Cells # (Man) Cancelled 04/21/25 05:51 Plasma Cell # (Manual) Cancelled 04/21/25 05:51 Other Cells # 0.08 K/uL (0-0) H 04/22/25 11:28 Nucleated RBCs # (Man) Cancelled 04/21/25 05:51 Hypersegmented Neuts Cancelled 04/21/25 05:51 Hyposegmented Neuts Cancelled 04/21/25 05:51 Hypogranular Neuts Cancelled 04/21/25 05:51 Large Granular Lymphs Cancelled 04/21/25 05:51 # Lrg Granular Lymphs Cancelled 04/21/25 05:51 Hairy Cells Cancelled 04/21/25 05:51 Smudge Cells Cancelled 04/21/25 05:51 Toxic Granulation Cancelled 04/21/25 05:51 Toxic Vacuolation Cancelled 04/21/25 05:51 Dohle Bodies Cancelled 04/21/25 05:51 Daniella Rods Cancelled 04/21/25 05:51 Platelet Estimate Cancelled 04/21/25 05:51 Hypogranular Platelets Cancelled 04/21/25 05:51 Giant Platelets Cancelled 04/21/25 05:51 Platelet Satelliting Cancelled 04/21/25 05:51 RBC Morphology Cancelled 04/21/25 05:51 Polychromasia Cancelled 04/21/25 05:51 Hypochromasia Cancelled 04/21/25 05:51 Poikilocytosis Cancelled 04/21/25 05:51 Basophilic Stippling Cancelled 04/21/25 05:51 Anisocytosis Cancelled 04/21/25 05:51 Microcytosis Cancelled 04/21/25 05:51 Macrocytosis Cancelled 04/21/25 05:51 Spherocytes Cancelled 04/21/25 05:51 Pappenheimer Bodies Cancelled 04/21/25 05:51 Sickle Cells Cancelled 04/21/25 05:51 Target Cells Cancelled 04/21/25 05:51 Tear Drop Cells Cancelled 04/21/25 05:51 Ovalocytes Cancelled 04/21/25 05:51 Stomatocytes Cancelled 04/21/25 05:51 [place] Bodies Cancelled 04/21/25 05:51 Echinocytes Cancelled 04/21/25 05:51 Acanthocytes (Spur) Cancelled 04/21/25 05:51 Rouleaux Cancelled 04/21/25 05:51 RBC Agglutinates Cancelled 04/21/25 05:51 Schistocytes Cancelled 04/21/25 05:51 Peripher Smr Path Cons 04/21/25 05:51 Peripher Smr Path Cons Cancelled 04/21/25 05:51 Sezary Cell Cancelled 04/21/25 05:51 Sodium 141 mmol/L (136-145) 04/21/25 05:51 Potassium 3.6 mmol/L (3.5-5.1) 04/21/25 05:51 Chloride 107 mmol/L (98-107) 04/21/25 05:51 Carbon Dioxide 29 mmol/L (21-32) 04/21/25 05:51 Anion Gap 5 (3-11) 04/21/25 05:51 BUN 11 mg/dl (6-23) 04/21/25 05:51 Creatinine 0.63 mg/dl (0.6-1.2) 04/21/25 05:51 Est Cr Clr Drug Dosing 65.8 ml/min 04/21/25 05:51 eGFR 93.61 04/21/25 05:51 BUN/Creatinine Ratio 17.5 (10-20) 04/21/25 05:51 Glucose 91 mg/dl (70-99(Fasting)) 04/21/25 05:51 Calcium 8.4 mg/dl (8.6-10.3) L 04/21/25 05:51 Total Bilirubin 0.3 mg/dl (0.2-1.0) 04/21/25 05:51 AST 18 U/L (13-39) 04/21/25 05:51 ALT 15 U/L (7-52) 04/21/25 05:51 Alkaline Phosphatase 39 U/L (34-104) 04/21/25 05:51 Troponin I High Sens 10.5 pg/ml (0-14) 04/19/25 11:37 B-Natriuretic Peptide 171 pg/ml (0-100) H 04/19/25 11:37 Total Protein 6.1 gm/dl (6.0-8.3) 04/21/25 05:51 Albumin 3.5 gm/dl (3.4-5.0) 04/21/25 05:51 Globulin 2.6 gm/dl (2.5-4.0) 04/21/25 05:51 Albumin/Globulin Ratio 1.3 (0.9-2) 04/21/25 05:51 Urine Color Yellow 04/19/25 16:25 Urine Appearance Clear (Clear) 04/19/25 16:25 Urine pH 8.5 (4.5-7.5) H 04/19/25 16:25 Ur Specific [place] 1.021 (1.000-1.030) 04/19/25 16:25 Urine Protein Negative (Negative) 04/19/25 16:25 Urine Glucose (UA) Negative (Negative) 04/19/25 16:25 Urine Ketones Negative (Negative) 04/19/25 16:25 Urine Blood Trace (Negative) H 04/19/25 16:25 Urine Nitrite Negative (Negative) 04/19/25 16:25 Urine Bilirubin Negative (Negative) 04/19/25 16:25 Urine Urobilinogen Negative (Negative) 04/19/25 16:25 Ur Leukocyte Esterase Trace (Negative) H 04/19/25 16:25 Urine WBC (Auto) 0-5 /hpf (0-5) 04/19/25 16:25 Urine RBC (Auto) 0-2 /hpf (0-2) 04/19/25 16:25 U Hyaline Cast (Auto) 0-2 /lpf (0-2) 04/19/25 16:25 U Epithel Cells (Auto) 0-2 /hpf (0-2) 04/19/25 16:25 Urine Bacteria (Auto) None Seen (None Seen) 04/19/25 16:25 Urine Comment 04/19/25 16:25 Anaplasma Smear See Comment 04/22/25 07:43 Babesia Smear See Comment 04/22/25 07:43 Lyme Disease Screen Negative (Negative) 04/22/25 07:43 Blood Parasites ID Cancelled 04/21/25 05:51 Impressions Chest X-Ray 04/19/25 11:24 SINGLE VIEW CHEST CLINICAL HISTORY: Cough and dyspnea. Covered FINDINGS: An AP, portable, upright chest radiographs are obtained. No prior studies are available for comparison at the time of dictation. The cardiomediastinal silhouette is unremarkable noting atherosclerotic calcification of the thoracic aorta. The lungs and pleural spaces are clear. No pneumothorax is seen. The skeletal structures are osteopenic. The bony thorax is grossly intact. IMPRESSION: No active disease in the chest. ACT 112: Negative or not required by law. Electronically signed by: Des Minaya M.D. 04/19/2025 12:19 PM Chest CTA 04/19/25 12:45 CT ANGIOGRAM OF THE CHEST CLINICAL HISTORY: Dyspnea. Covid. COMPARISON STUDY: No priors TECHNIQUE: Following the IV administration of 63 cc of Optiray 320, CT angiogram of the chest was performed from the upper abdomen to the thoracic inlet utilizing the pulmonary embolus protocol. Images are reviewed in the axial, sagittal, and coronal planes. 3-D MIPS images are created and assessed. IV contrast was administered without complication. A dose lowering technique was utilized adhering to the principles of ALARA. CT DOSE: 300.2 mGy.cm FINDINGS: Thyroid: Normal in size and heterogeneous in attenuation. Thoracic aorta: There is mild atherosclerotic calcification of the thoracic aorta, which is normal in caliber and demonstrates standard 3-vessel arch anatomy. The thoracic aorta is not well opacified. Pulmonary vasculature: The pulmonary trunk is normal in caliber. There are no filling defects identified in main, lobar, or segmental pulmonary branches to suggest pulmonary embolus. Heart: The heart is enlarged and without pericardial effusion. Lungs and pleural spaces: Evaluation of the lung parenchyma is modestly degraded by motion artifact. No airspace consolidation is seen typical for pneumonia. There are trace pleural effusions with dependent atelectasis. The trachea and central airways are clear. There are scattered calcified granulomas. Mediastinum: There is no mediastinal lymphadenopathy. Vivienne: Clear. Axillae: There is no axillary lymphadenopathy. Upper abdomen: Partially visualized upper abdominal viscera is within normal limits. Skeletal structures: The skeletal structures are osteopenic. No lytic or blastic bony lesions are seen. IMPRESSION: 1. There is no evidence of pulmonary embolus in the main, lobar, or segmental pulmonary arteries. 2. Cardiomegaly and trace pleural effusions. 3. There is no airspace consolidation typical for pneumonia. 4. Additional findings as above ACT 112: Negative or not required by law. Electronically signed by: Des Minaya M.D. 04/19/2025 1:[address] 04/20/25 07:46 CT SCAN OF THE BRAIN WITHOUT IV CONTRAST CLINICAL HISTORY: Near syncope COMPARISON STUDY: No priors TECHNIQUE: Unenhanced axial CT scan of the brain is performed from the vertex to the skull base. Images are reviewed in the axial, sagittal, coronal planes. A dose lowering technique was utilized adhering to the principles of ALARA. CT DOSE: 547.75 mGy.cm FINDINGS: Brain parenchyma: There is age-related involutional change noting minimal subcortical and periventricular microangiopathic disease. There is no hemorrhage, mass effect, or evidence of acute territorial ischemia by CT criteria. Blanco-white matter differentiation is preserved. No extra-axial fluid collection is seen. Ventricles, sulci, cisterns: Prominent secondary to involutional change. Intracranial vasculature: There is atherosclerotic calcification of the cavernous carotid and vertebral arteries. Calvarium: Unremarkable. Sinuses and mastoids: Delete there is moderate mucosal thickening within the ethmoid sinuses. Mild mucosal thickening is noted in the frontal and sphenoid sinuses. There is trace fluid in the left maxillary antrum. The mastoid air cells are well pneumatized. Orbits: The bony orbits are grossly intact. IMPRESSION: There is no hemorrhage, mass effect, or evidence of acute territorial ischemia by CT criteria. ACT 112: Negative or not required by law. Electronically signed by: Des Minaya M.D. 04/20/2025 9:58 AM Pending Results Patient Have Any Pending Studies at Discharge: Yes Discharge Instructions Given to Patient (Per Discharging Provider) PLEASE REFER TO YOUR NEW MEDICATION LIST AND FOLLOW INSTRUCTIONS CAREFULLY. YOUR NEW MEDICATIONS INCLUDE: Increase your amlodipine to 5 mg twice a day. Increase lisinopril to 20 mg twice a day. Augmentin-antibiotic for possible bacterial sinus infection Diazepam- as needed for anxiety - strictly no driving, swimming, operating machineries while taking this medication - please take only as directed - Do NOT take this medication with Zolpidem (Ambien)_ Drink plenty of water daily. PLEASE CALL YOUR PRIMARY CARE PHYSICIAN OR RETURN TO THE ER IF WITH WORSENING OF SYMPTOMS, INCLUDING shortness of breath, cough, fevers or chills, dizziness, weakness, nausea vomiting, etc. FOLLOW UP WITH PRIMARY CARE PHYSICIAN OUTLINED ABOVE. Follow-up with clinical psychology professor Dr. Palmira Cisneros in 2 weeks. Contact information outlined above. Take care! Total Time Total Time Spent Total Time Spent (In Minutes): 50 minutes
== END 2025-04-22 14:29 | disposition home or self-care (01) | DRG 312 ==
LOC: 2E 11:15 → ED 11:15 → SUATTDRO 17:14 → 2E 17:49